=== PATIENT | female | born 1960 | race Caucasian/White ===

== ENCOUNTER 2019-02-12 10:56 | Emergency (ER) | payer OTHER ==
--- NOTE | 2019-02-12 11:33 | ERPHSYRPT ---
- History of Present Illness Source: patient, other () Exam Limitations: no limitations Patient Subjective Stated Complaint: pt slipped on stairs and fell hitting back on stairs, pt co pain to mid back and rib areas Triage Nursing Assessment: pt alert, resp labored from pain,. skin w/d/p.abd soft, no bruising ar abrasion noted . pt was able to get self out of wc to bed Physician History: tthe patient is a 58-year-old female who presents with a chief complaint of mid back pain after a mechanical fall that took place an estimated 45 minutes prior to arrival to the emergency department. She reportedly was walking down some basement stairs when she slipped and fell down the last 2 stairs impacting her mid back on the edge of the stair. She denies loss of consciousness but states that the wind was knocked out of her. She is able to get up on her own and ambulate without difficulty with the exception of pain or back. The pain is described as a sharp left-sided pain located primarily to the thoracic or lumbar region of her spine that is nonradiating constant in mild to moderate severity. The pain increases with movement of her torso and decreases with rest. She currently has no significant medical problems and denies taking anticoagulants. There is no report of drug or alcohol use. The patient is able to get out of the car around and walk into the emergency department but was assisted to her room via wheelchair. She denies any focal weakness to her lower extremities and upper extremities. There was never put a numbness to her lower extremities. she was offered pain medication after I completed my history of present illness and exam however she declined Reason for Fall: slipped Injuries/Pain Location: back Loss of Consciousness: no loss of consciousness Quality: sharpness, throbbing Severity of Pain-Max: moderate Severity of Pain-Current: mild Modifying Factors: Improves With: nothing Associated Symptoms (Fall): denies symptoms, No headache, No neck pain, No vomiting Allergies/Adverse Reactions: pseudoephedrine [From Sudafed] Allergy (Verified 02/12/19 11:11) Hx Influenza Vaccination/Date Given: No Hx Pneumococcal Vaccination/Date Given: No Immunizations Up to Date: Yes - Review of Systems Constitutional: No No Symptoms Ears, Nose, & Throat: No Symptoms Respiratory: No Symptoms Cardiac: No Symptoms Abdominal/Gastrointestinal: No Symptoms Genitourinary Symptoms: No Symptoms Musculoskeletal: Fall, Injury, Other (Back pain) Neurological: No Symptoms Psychological: No Symptoms All Other Systems: Reviewed and Negative - Past Medical History Pertinent Past Medical History: No - Past Surgical History Past Surgical History: No - Social History Smoking Status: Never smoker Drug Use: none Patient Lives Alone: No - Female History Hx Last Menstrual Period: psot - Nursing Vital Signs Nursing Vital Signs: Initial Vital Signs Temperature 97.5 F 02/12/19 11:06 Pulse Rate 72 02/12/19 11:06 Respiratory Rate 20 02/12/19 11:06 Blood Pressure 150/97 02/12/19 11:06 O2 Sat by Pulse Oximetry 100 02/12/19 11:06 Pain Scale Pain Intensity 4 - [place] Coma Score Best Eye Response (Dat): (4) open spontaneously Best Verbal Response (Dat): (5) oriented Best Motor Response ([place]): (6) obeys commands Dat Total: 15 - Physical Exam General Appearance: mild distress Head Injury: no evidence of injury Eye Exam: PERRL/EOMI, eyes nml inspection, No scleral icterus, No pale conjunctivae ENT Exam: airway nml, No dental injury, No oral injury Neck Exam: supple, trachea midline, full range of motion, normal alignment, normal inspection, focal neuro deficit, No limited range of motion, No muscle spasm, No paraspinous muscle tender, No pain on movement of neck, No stiff neck , No tenderness, No tender lateral, No mid-line tenderness, No JVD Respiratory/Chest Exam: normal breath sounds, No chest tenderness, No respiratory distress, No decreased breath sounds, No paradoxical movements Cardiovascular Exam: normal heart sounds, regular rate/rhythm, No murmur, No edema, No JVD Gastrointestinal Exam: soft, normal bowel sounds, No tenderness Back Exam: normal inspection, point tenderness, other (Point tenderness noted to the T11-12, L1-2, no crepitus, no step-off, or deformity, no visible injury present) Extremity Exam: normal inspection Peripheral Pulses: dorsalis-pedis (R): 2+, dorsalis-pedis (L): 2+ Neurologic Exam: alert, oriented x 3, cooperative Skin Exam: normal color SpO2 Interpretation: normal SpO2: 100 O2 Delivery: Room Air - Course Nursing assessment & vital signs reviewed: Yes - Radiology Exams Other X-ray Interpretation: Interpreted by me, Reviewed by me (I reviewed the patient' s XR and it appeared to be abnormal at T11-T12 and I requested radiology to formally read. Radiology read ? T12 Fracture recommend follow-up CT. ) - CT Exams Thoracic Spine CT Interpretation: Negative, Tele-radiologist Report, Other (CT reviewed by me as well and I did not see any obvious fracture ) Ordered Tests: Active Orders 24 hr Category Date Time Status THORACIC SPINE W/O CONTRAST [CT] Stat Exams 02/12/19 12:10 Completed THORACOLUMBAR SPINE Stat Exams 02/12/19 12:07 Completed Medication Summary Discontinued Medications Generic Name Dose Route Start Last Admin Trade Name Freq PRN Reason Stop Dose Admin Hydrocodone Bitart/Acetaminophen 2 tab 02/12/19 11:35 02/12/19 11:37 [place] 5/325 Mg PO 02/12/19 11:36 2 tab STAT ONE Administration Hydrocodone Bitart/Acetaminophen Confirm 02/12/19 11:36 [place] 5/325 Mg Administered 02/12/19 11:37 Dose 2 tab .ROUTE .[employer]Beam[employer] Interactive-MED ONE - Progress Progress: improved Progress Note: 02/12/19 11:34 The patients just came to the nursing station and reports the patient is now requesting pain medication Counseled pt/family regarding: diagnosis, need for follow-up - Departure Departure Disposition: Home, Extended Care Facility Clinical Impression: Contusion, back, Fall (on) (from) other stairs and steps, initial encounter, Elevated blood pressure reading Condition: Stable Critical Care Time: No Referrals: REBECA WILLINGHAM [Primary Care Provider] - Instructions: Low Back Pain in Adults, Contusion (DC), Preventing Falls Forms: Work/School Release Form Plan of Treatment: aand nontoxic in appearance. The patient presents with a mechanical fall in his lower thoracic back pain suspicious for a possible fracture. Ultimately the patient's plain films showed evidence of a possible T12 fracture and followup CT of her thoracic spine was negative for such. I believe the patient likely is suffering from a rectal lumbar strain in addition to a contusion from her mechanical fall. She'll be discharged with instructions to take naproxen scheduled for the next 5 days and given a short prescription for [place] to take for any breakthrough pain. Prescriptions: Hydrocodone/APAP 5/325 [[place] 5/325 mg] 1 - 2 each PO Q6H PRN PRN #10 tablet MDD 6 PRN Reason: Pain Naproxen 500 mg [Naprosyn 500 MG] 500 mg PO BID #10 tablet
[2019-02-12] MEDS ORDERED: NORCO 5/325 MG PO ONE (11:35)
[2019-02-12] MEDS ORDERED: NORCO 5/325 MG ONE (11:36)
[2019-02-12 13:12] VITALS: O2SAT 100
[2019-02-12 13:19] VITALS: BP 145/81; PULSE 72
--- NOTE | 2019-02-12 15:27 | XRAY ---
Indication: Back pain following fall. Multiple contiguous axial images obtained through the thoracic spine. Sagittal and coronal reformatted images obtained. Comparison: None Axial images negative for acute fracture, suspicious bony lesions, or spinal canal stenosis. There is mild multilevel bridging/nonbridging endplate osteophytes. Sagittal and coronal reformatted images demonstrate normal alignment with vertebral body heights/disc spaces maintained. No acute compression fracture or subluxation. Visualized soft tissues demonstrates mild bilateral lung dependent atelectasis and mediastinal/hilar calcified lymph nodes. Impression: 1. Negative acute fracture, subluxation, or spinal canal stenosis. 2. Multilevel degenerative spondylosis and evidence for old granulomatous disease. Comment: Preliminary interpretation was made by [facility]. No discrepancy. CTDI 13.39
--- NOTE | 2019-02-12 15:27 | XRAY ---
Indication: Pain following fall. Comparison: None AP/lateral spine centered at the thoracolumbar junction demonstrates mild osteopenia and mild multilevel degenerative endplate spurring. No acute compression fracture, subluxation, or suspicious bony lesions. Visualized soft tissues unremarkable. Impression: Osteopenia and degenerative changes. Negative acute fracture/subluxation.
== END 2019-02-12 13:33 | disposition home or self-care (01) ==
LOC: ED 10:56
DX: S20.229A Contusion of unspecified back wall of thorax, initial encounter (principal); W01.198A Fall on same level from slipping, tripping and stumbling with subsequent striking against other object, initial encounter; Y93.9 Activity, unspecified; Y92.9 Unspecified place or not applicable; M54.6 Pain in thoracic spine; M54.5 Low back pain
CPT/HCPCS: 72080; 72128; 99284; A9270-GY

== ENCOUNTER → 2019-02-18 | Emergency (ER) | payer OTHER ==
[~2019-02-18] MED LIST: MORPHINE SULFATE 4 MG INJ IM ONE; MORPHINE SULFATE 4 MG INJ ONE; Norflex 60 MG/2 ML IM ONE; Norflex 60 MG/2 ML ONE
--- NOTE | 2019-02-18 11:15 | ERPHSYRPT ---
- History of Present Illness Time Seen by Provider: 02/18/19 09:25 Source: patient Exam Limitations: no limitations Patient Subjective Stated Complaint: pt to ER with complaints of fall last wednesday, seen here in ER, sent home, and seen chiropractor that week. pt moved wrong in bed , felt a "pop" in mid/right side of back and has been in pain ever since. Triage Nursing Assessment: pt to ER with complaints of pain in thoracic back pain/R side rib pain. also having abdominal pain/nausea. pt states she fell last week and moved in bed , felt a pop and then has been having pain ever since. Physician History: 58 years old female presented in the ER with chief complaint of mid back pain after she missed a couple of steps and fell, hitting edge of stairs almost a week ago with negative CT thoracic spine for any fracture or subluxation. She is evaluated in the ER before, pain was better with [place], was ambulating better until 2 days ago when pain is getting worse. Morbid activity/movement/ twisting and better with resting. Nonradiating. Denies any loss of bowel or bladder control. No nausea or vomiting. No new fall or trauma. He is in the same area as before. Timing/Duration: week(s) (1) Method of Injury: fall Quality: sharp, throbbing Back Pain Location: T-spine, lumbar spine (with a) Modifying Factors: Improves With: movement, pain medication, rest Associated Symptoms: muscle spasms, No urinary incontinence, No loss of bowel control, No constipation, No vomiting, No dizziness, No numbness in legs/feet, No sensory/motor loss, No tingling in legs/feet Previous symptoms: no prior history Allergies/Adverse Reactions: pseudoephedrine [From Sudafed] Allergy (Verified 02/18/19 09:48) Hx Tetanus, Diphtheria Vaccination/Date Given: No Hx Influenza Vaccination/Date Given: No Hx Pneumococcal Vaccination/Date Given: No Immunizations Up to Date: No - Review of Systems Constitutional: No Symptoms Eyes: No Symptoms Ears, Nose, & Throat: No Symptoms Respiratory: No Symptoms Cardiac: No Symptoms Abdominal/Gastrointestinal: No Symptoms Genitourinary Symptoms: No Symptoms Musculoskeletal: Back Pain Skin: No Symptoms Neurological: No Symptoms Psychological: No Symptoms Endocrine: No Symptoms Hematologic/Lymphatic: No Symptoms Immunological/Allergic: No Symptoms - Past Medical History Pertinent Past Medical History: No - Past Surgical History Past Surgical History: No - Social History Smoking Status: Never smoker Exposure to second hand smoke: Yes Drug Use: none Patient Lives Alone: No - Female History Hx Now: No - Nursing Vital Signs Nursing Vital Signs: Initial Vital Signs Temperature 97.3 F 02/18/19 09:35 Pulse Rate 66 02/18/19 09:35 Respiratory Rate 18 02/18/19 09:35 Blood Pressure 165/78 02/18/19 09:35 O2 Sat by Pulse Oximetry 100 02/18/19 09:35 Pain Scale Pain Intensity 8 - Physical Exam General Appearance: no apparent distress Eye Exam: PERRL/EOMI Ears, Nose, Throat Exam: normal ENT inspection, pharynx normal Neck Exam: normal inspection, non-tender, supple, full range of motion Respiratory Exam: normal breath sounds, chest tenderness, lungs clear Cardiovascular Exam: regular rate/rhythm, normal heart sounds Gastrointestinal Exam: soft, normal bowel sounds, No tenderness, No distention, No mass Back Exam: normal inspection, vertebral tenderness (lower thoracic/upper lumbar paraspinal area tenderness with some vertebral tenderness. No pain with leg elevations. Distal neurovascularly intact.), No normal range of motion, No CVA tenderness Extremity Exam: normal inspection, normal range of motion, pelvis stable Neurologic Exam: alert, oriented x 3, cooperative Skin Exam: normal color, warm (troponin) SpO2 Interpretation: normal SpO2: 100 O2 Delivery: Room Air - Course Nursing assessment & vital signs reviewed: Yes Ordered Tests: Medication Summary Discontinued Medications Generic Name Dose Route Start Last Admin Trade Name [place] PRN Reason Stop Dose Admin Morphine Sulfate 4 mg 02/18/19 09:59 02/18/19 10:12 Morphine Sulfate 4 Mg Inj IM 02/18/19 10:00 4 mg STAT ONE Administration Morphine Sulfate Confirm 02/18/19 10:05 Morphine Sulfate 4 Mg Inj Administered 02/18/19 10:06 Dose 4 mg .ROUTE .STK-MED ONE Orphenadrine Citrate 60 mg 02/18/19 09:59 02/18/19 10:10 Norflex 60 Mg/2 Ml IM 02/18/19 10:00 60 mg STAT ONE Administration Orphenadrine Citrate Confirm 02/18/19 10:05 Norflex 60 Mg/2 Ml Administered 02/18/19 10:06 Dose 60 mg .ROUTE .STK-MED ONE - Progress Progress: improved, pain not gone completely, re-examined Progress Note: 58 years old is evaluated for mid back pain after fall almost a week ago. She does not have a meal follow and pain is similar to previous. She recently ran out of her pain medications. She has negative neuro exam lower extremities. No signs of cauda equina. I have reviewed her CT done last week. I do not think she needs another CAT scan. She is given morphine and Norflex, and reevaluation feeling much improved. She is able to ambulate in the ER without assistance. I believe she has crackle lumbar strain. I would start her on ibuprofen and Robaxin and will also give her a few more close to take as needed only. Discussed signs and symptoms of worsening needed return to ER which he seems understanding. Otherwise followup at primary care /orthopedic surgeon for reevaluation. 02/18/19 11:22 Counseled pt/family regarding: diagnosis, need for follow-up - Departure Departure Disposition: Home Clinical Impression: Strain of mid-back Qualifiers: Encounter type: subsequent encounter Qualified Code(s): S29.012D - Strain of muscle and tendon of back wall of thorax, subsequent encounter Condition: Stable Critical Care Time: No Referrals: REBECA WILLINGHAM [Primary Care Provider] - Follow Up with PCP (1-2 days ) ANGELIQUE KEARNEY NP [NON-STAFF PHY W/O PRIVILEGES] - [facility] M-[id number] (2-3 days for re valuation) Prescriptions: Ibuprofen 600 mg PO Q6HPRN PRN 10 Days #30 tablet PRN Reason: Pain Hydrocodone/Acetaminophen [[place] 7.5-325 Tablet] 1 each PO Q4-6HPRN PRN 3 Days # 10 tablet MDD 4 tab PRN Reason: Pain Methocarbamol [Robaxin-750] 750 mg PO TID #30 tablet
[2019-02-18 14:03] VITALS: BP 128/74; PULSE 65; O2SAT 98
== END ==
LOC: ED 08:58
DX: S29.012D Strain of muscle and tendon of back wall of thorax, subsequent encounter (principal)
CPT/HCPCS: 96372; 99284; J2270; J2360

== ENCOUNTER 2021-07-07 10:25 | Emergency (ER) | payer OTHER ==
--- NOTE | 2021-07-07 10:28 | ERPHSYRPT ---
- History of Present Illness Time Seen by Provider: 07/07/21 10:28 Historian: patient, family Exam Limitations: no limitations Physician History: This is a 60-year-old white female patient of Dr. Hauser who presents with chest pain and epigastric discomfort that she described as sharp that radiates through to her back. Patient states that she has been having some nausea and mild discomfort in this region for couple days since she has been on a Z-Norman for treatment of a tooth ache. Patient has known documented/history of coronary artery disease. Patient does have a history of chronic low back pain. She has no shortness of breath. She had no vomiting or diarrhea or flulike symptoms. Timing/Duration: today Activities at Onset: none Quality: sharpness, stabbing Location: substernal, central, epigastric Chest Pain Radiation: back Severity of Pain-Max: moderate Severity of Pain-Current: moderate Associated Symptoms: nausea, No vomiting, No shortness of breath, No cough Prior Chest Pain/Cardiac Workup: no prior chest pain, no prior cardiac workup Nitro Today/Relief: no nitro taken today Aspirin Treatment Today: no aspirin today Allergies/Adverse Reactions: pseudoephedrine [From Sudafed] Allergy (Verified 07/07/21 10:28) Home Medications: Azithromycin [Azithromycin 250 mg Pack] 1 ea DAILY 07/07/21 [History] Ezetimibe 10 mg [Zetia 10 MG] 1 ea DAILY 07/07/21 [History] Hx Tetanus, Diphtheria Vaccination/Date Given: No Hx Influenza Vaccination/Date Given: No Hx Pneumococcal Vaccination/Date Given: No Travel Risk - International Travel Have you traveled outside of the country in past 3 weeks: No - Coronavirus Screening Are you exhibiting any of the following symptoms?: No Close contact with a COVID-19 positive Pt in past 14-21 Days: No - Review of Systems Constitutional: No Symptoms Eyes: No Symptoms Ears, Nose, & Throat: No Symptoms Respiratory: No Symptoms Cardiac: Chest Pain Abdominal/Gastrointestinal: Abdominal Pain (epigastric), Nausea, No Vomiting, No Diarrhea Genitourinary Symptoms: No Symptoms Musculoskeletal: No Symptoms Skin: No Symptoms Neurological: No Symptoms Psychological: No Symptoms Endocrine: No Symptoms Hematologic/Lymphatic: No Symptoms Immunological/Allergic: No Symptoms All Other Systems: Reviewed and Negative - Past Medical History Pertinent Past Medical History: No - Past Surgical History Past Surgical History: No - Social History Smoking Status: Never smoker Exposure to second hand smoke: Yes Drug Use: none Patient Lives Alone: No - Nursing Vital Signs Nursing Vital Signs: Initial Vital Signs O2 Sat by Pulse Oximetry 96 07/07/21 10:29 Pain Scale Pain Intensity 0 - Physical Exam General Appearance: mild distress, alert, anxiety Eye Exam: PERRL/EOMI, eyes nml inspection Ears, Nose, Throat Exam: normal ENT inspection, moist mucous membranes Neck Exam: normal inspection, non-tender, supple, full range of motion Respiratory Exam: normal breath sounds, chest tenderness, lungs clear, airway intact, No respiratory distress Cardiovascular Exam: regular rate/rhythm, normal heart sounds, normal peripheral pulses Gastrointestinal/Abdomen Exam: soft, normal bowel sounds, tenderness (epigastric) Pelvic Exam: not done Rectal Exam: not done Back Exam: normal inspection, normal range of motion, No CVA tenderness, No vertebral tenderness Extremity Exam: normal inspection, normal range of motion, pelvis stable Neurologic Exam: alert, oriented x 3, cooperative, normal mood/affect, nml cerebellar function, nml station & gait Skin Exam: normal color, warm, dry Lymphatic Exam: No adenopathy SpO2 Interpretation: normal O2 Delivery: Room Air - Course Nursing assessment & vital signs reviewed: Yes EKG Interpreted by Me: RATE (65), Sinus Rhythm, NORMAL INTERVALS, Left Bundle Branch Block, NORMAL ST-T, Other (no acute ischemia) Ordered Tests: Active Orders 24 hr Category Date Time Status EKG-ER Only STAT Care 07/07/21 10:29 Active IV Insertion STAT Care 07/07/21 10:29 Active Oxygen-ED Only Nasal Cannula 2 lpm Care 07/07/21 11:38 Active Pulse Oximetry (ED) STAT Care 07/07/21 10:29 Active CHEST 1 VIEW (PORTABLE) Stat Exams 07/07/21 10:32 Completed CHEST WITH CONTRAST [CT] Stat Exams 07/07/21 12:28 Completed CBC W DIFF Stat Lab 07/07/21 10:40 Completed CMP Stat Lab 07/07/21 10:40 Completed D-DIMER QUANTITATIVE Stat Lab 07/07/21 10:40 Completed NT PRO BNP Stat Lab 07/07/21 10:40 Completed TROPONIN Q3H Lab 07/07/21 10:40 Completed TROPONIN Q3H Lab 07/07/21 13:48 Received TROPONIN Q3H Lab 07/07/21 16:45 Ordered TROPONIN Q3H Lab 07/07/21 19:45 Ordered TROPONIN Q3H Lab 07/07/21 22:45 Ordered Medication Summary Discontinued Medications Generic Name Dose Route Start Last Admin Trade Name Elbert PRN Reason Stop Dose Admin Al Hydrox/Mg Hydrox/Simethicone Confirm 07/07/21 11:36 Mag Hydrox/Al Hydrox/Simeth 30 Ml Udcup Administered 07/07/21 11:37 Dose 30 ml .ROUTE .STK-MED ONE Aspirin 324 mg 07/07/21 10:29 07/07/21 10:43 Aspirin 81 Mg Tab.Chew PO 07/07/21 10:30 324 mg STAT ONE Administration Aspirin Confirm 07/07/21 10:42 Aspirin 81 Mg Tab.Chew Administered 07/07/21 10:43 Dose 324 mg .ROUTE .STK-MED ONE Ceftriaxone Sodium/Dextrose 1 g in 50 mls @ 100 mls/hr 07/07/21 11:31 07/07/21 12:33 Rocephin 1 Gm-D5w 50 Ml Bag IV 07/07/21 12:00 Infused STAT STA Infusion Ceftriaxone Sodium/Dextrose Confirm 07/07/21 11:36 Rocephin 1 Gm-D5w 50 Ml Bag Administered 07/07/21 11:37 Dose 1 g in 50 mls @ ud IV .STK-MED ONE Lidocaine HCl Confirm 07/07/21 11:36 Lidocaine Hcl Viscous 1 Ml Administered 07/07/21 11:37 Dose 15 ml .ROUTE .STK-MED ONE Magnesium Hydroxide 45 ml 07/07/21 11:28 07/07/21 11:42 Mag Hydrx/Alum Hyd/Simeth/Lido 45 Ml Bottle PO 07/07/21 11:29 45 ml STAT ONE Administration Morphine Sulfate 2 mg 07/07/21 10:29 07/07/21 10:49 Morphine Sulfate 2 Mg/Ml Inj IV 07/07/21 10:30 2 mg STAT ONE Administration Morphine Sulfate Confirm 07/07/21 10:42 Morphine Sulfate 2 Mg/Ml Inj Administered 07/07/21 10:43 Dose 2 mg .ROUTE .STK-MED ONE Nitroglycerin 0.4 mg 07/07/21 10:29 07/07/21 11:26 Nitroglycerin 0.4 Mg (Ed) 0.4 Mg Tab.Subl SL 07/07/21 10:30 Not Given STAT ONE Ondansetron HCl 4 mg 07/07/21 10:29 07/07/21 10:43 Ondansetron Hcl 4 Mg/2 Ml Vial IV 07/07/21 10:30 4 mg STAT ONE Administration Ondansetron HCl Confirm 07/07/21 10:41 Ondansetron Hcl 4 Mg/2 Ml Vial Administered 07/07/21 10:42 Dose 4 mg .ROUTE .STK-MED ONE Lab/Rad Data: Laboratory Result Diagrams 07/07/21 10:40 07/07/21 10:40 Laboratory Results 07/07/21 07/07/21 07/07/21 Range/Units 10:40 10:40 10:40 WBC (4.0-10.5) K/mm3 RBC (4.1-5.4) M/mm3 Hgb (12.0-16.0) gm/dl Hct (35-47) % MCV (78-100) fl MCH (26-32) pg MCHC (32-36) g/dl RDW (11.5-14.0) % Plt Count (150-450) K/mm3 MPV (7.5-11.0) fl Gran % (36.0-66.0) % Eos # (Auto) (0-0.5) Absolute Lymphs (auto) (1.0-4.6) Absolute Monos (auto) (0.0-1.3) Lymphocytes % (24.0-44.0) % Monocytes % (0.0-12.0) % Eosinophils % (0.00-5.0) % Basophils % (0.0-0.4) % Absolute Granulocytes (1.4-6.9) Basophils # (0-0.4) D-Dimer 898 H* (215-500) ng/mL Sodium 139 (137-145) mmol/L Potassium 4.2 (3.5-5.1) mmol/L Chloride 102 (98-107) mmol/L Carbon Dioxide 23 (22-30) mmol/L Anion Gap 17.7 H (5-15) MEQ/L BUN 18 H (7-17) mg/dL Creatinine 0.72 (0.52-1.04) mg/dL Estimated GFR > 60.0 ML/MIN Glucose 117 H (74-106) mg/dL Calcium 9.7 (8.4-10.2) mg/dL Total Bilirubin 1.10 (0.2-1.3) mg/dL AST 29 (14-36) U/L ALT 19 (0-35) U/L Alkaline Phosphatase 119 (38-126) U/L Troponin I < 0.012 (0.000-0.034) ng/mL NT-Pro-B Natriuret Pep 32.7 (0-900) pg/mL Serum Total Protein 7.6 (6.3-8.2) g/dL Albumin 4.5 (3.5-5.0) g/dL 07/07/21 Range/Units 10:40 WBC 12.2 H (4.0-10.5) K/mm3 RBC 4.90 (4.1-5.4) M/mm3 Hgb 14.2 (12.0-16.0) gm/dl Hct 42.6 (35-47) % MCV 86.9 (78-100) fl MCH 29.0 (26-32) pg MCHC 33.3 (32-36) g/dl RDW 13.7 (11.5-14.0) % Plt Count 353 (150-450) K/mm3 MPV 11.9 H (7.5-11.0) fl Gran % 72.8 H (36.0-66.0) % Eos # (Auto) 0.18 (0-0.5) Absolute Lymphs (auto) 2.42 (1.0-4.6) Absolute Monos (auto) 0.69 (0.0-1.3) Lymphocytes % 19.8 L (24.0-44.0) % Monocytes % 5.7 (0.0-12.0) % Eosinophils % 1.5 (0.00-5.0) % Basophils % 0.2 (0.0-0.4) % Absolute Granulocytes 8.89 H (1.4-6.9) Basophils # 0.03 (0-0.4) D-Dimer (215-500) ng/mL Sodium (137-145) mmol/L Potassium (3.5-5.1) mmol/L Chloride (98-107) mmol/L Carbon Dioxide (22-30) mmol/L Anion Gap (5-15) MEQ/L BUN (7-17) mg/dL Creatinine (0.52-1.04) mg/dL Estimated GFR ML/MIN Glucose (74-106) mg/dL Calcium (8.4-10.2) mg/dL Total Bilirubin (0.2-1.3) mg/dL AST (14-36) U/L ALT (0-35) U/L Alkaline Phosphatase (38-126) U/L Troponin I (0.000-0.034) ng/mL NT-Pro-B Natriuret Pep (0-900) pg/mL Serum Total Protein (6.3-8.2) g/dL Albumin (3.5-5.0) g/dL - Progress Progress: improved, re-examined Air Movement: good Progress Note: 07/07/21 11:30 Chest x-ray shows no acute cardiopulmonary process. 07/07/21 13:13 Patient states that after the GI cocktail and Zofran, her symptoms resolved nearly completely. She is feeling much better. 07/07/21 13:51 CTA of chest shows no acute cardiopulmonary abnormalities. It is negative for pulmonary embolus Blood Culture(s) Obtained: No Counseled pt/family regarding: lab results, diagnosis, need for follow-up, rad results - Departure Departure Disposition: Home Clinical Impression: Non-cardiac chest pain, Gastritis, Medication adverse effect Condition: Stable Critical Care Time: No Referrals: REBECA HAUSER [Primary Care Provider] - Follow up/PCP as directed Additional Instructions: Stop taking your azithromycin antibiotic. Call your prescribing doctor to let them know about your symptoms. Avoid fatty greasy spicy foods. Avoid caffeine and nicotine. Take your medication as prescribed. Prescriptions: Ondansetron ODT 4 MG [Zofran Odt 4 mg] 4 mg PO Q6H PRN PRN #10 tablet PRN Reason: Vomiting Famotidine 20 mg [Pepcid 20 MG] 20 mg PO DAILY #10 tablet
[2021-07-07] MEDS ORDERED: BABY ASPIRIN 81 MG CHEW PO ONE (10:29)
[2021-07-07] MEDS ORDERED: Nitrostat 0.4 MG (ED) SL ONE (10:29)
[2021-07-07] MEDS ORDERED: MORPHINE SULFATE 2 MG INJ IV ONE (10:29)
[2021-07-07] MEDS ORDERED: Zofran 4 MG/2 ML VIAL IV ONE (10:29)
[2021-07-07] MEDS ORDERED: Zofran 4 MG/2 ML VIAL ONE (10:41)
[2021-07-07] MEDS ORDERED: BABY ASPIRIN 81 MG CHEW ONE (10:42)
[2021-07-07] MEDS ORDERED: MORPHINE SULFATE 2 MG INJ ONE (10:42)
--- NOTE | 2021-07-07 11:02 | XRAY ---
Indication: Chest pain. Comparison: None Portable chest demonstrates minimal left base fibrosis/scarring. Remaining heart and lungs unremarkable. Bony thorax intact with mild osteopenia and degenerative changes.
[2021-07-07 11:07] LABS: ALBUMIN 4.5 g/dL (3.5-5.0); ALKALINE PHOSPHATASE 119 U/L (38-126); ANION GAP 17.7 MEQ/L (5-15); BLOOD UREA NITROGEN 18 mg/dL (7-17); CHLORIDE 102 mmol/L (98-107); Calcium 9.7 mg/dL (8.4-10.2); Carbon Dioxide 23 mmol/L (22-30); Creatinine 1 0.72 mg/dL (0.52-1.04); EST GLOMERULAR FILTRATION RATE > 60.0 ML/MIN; Glucose 117 mg/dL (74-106); NT PRO BNP 32.7 pg/mL (0-900); Potassium 4.2 mmol/L (3.5-5.1); SGOT/AST 29 U/L (14-36); SGPT/ALT 19 U/L (0-35); SODIUM 139 mmol/L (137-145); Total Protein 7.6 g/dL (6.3-8.2)
[2021-07-07 11:10] LABS: Absolute Neutrophil Ct (ANC) 8.89 (1.4-6.9); Basophil (Absolute #) 0.03 (0-0.4); Eosinophil % 1.5 % (0.00-5.0); Eosinophil (Absolute #) 0.18 (0-0.5); Hematocrit 42.6 % (35-47); Hemoglobin 14.2 gm/dl (12.0-16.0); Lymphocyte (Absolute #) 2.42 (1.0-4.6); Lymphocytes % 19.8 % (24.0-44.0); Mean Cell Volume 86.9 fl (78-100); Mean Corpuscular Hgb Concent. 33.3 g/dl (32-36); Mean Platelet Volume 11.9 fl (7.5-11.0); Monocyte (Absolute #) 0.69 (0.0-1.3); Monocytes % 5.7 % (0.0-12.0); Neutrophil % 72.8 % (36.0-66.0); Platelet Count 353 K/mm3 (150-450); Red Cell Distribution Width 13.7 % (11.5-14.0); White Blood Count 12.2 K/mm3 (4.0-10.5)
[2021-07-07] MEDS ORDERED: GI COCKTAIL 45 ML (Maalox/Lidocaine) PO ONE (11:28)
[2021-07-07] MEDS ORDERED: ROCEPHIN 1 Gm-D5w 50 ml Bag** 1 G/50 ML IVPB IV STA (11:31)
[2021-07-07] MEDS ORDERED: XYLOCAINE HCl Viscous ONE (11:36)
[2021-07-07] MEDS ORDERED: ROCEPHIN 1 Gm-D5w 50 ml Bag** 1 G/50 ML IVPB IV ONE (11:36)
[2021-07-07] MEDS ORDERED: MAALOX ES 30 ML UNIT DOSE ONE (11:36)
--- NOTE | 2021-07-07 13:47 | XRAY ---
Indication: Chest and back pain. Nausea and vomiting. Multiple contiguous axial images obtained through the chest using 100 cc Isovue 370 contrast and PE protocol. Comparison: None Good opacification of the pulmonary arteries to include the lobar and segmental branches. No pulmonary embolus. Heart is not enlarged. Aorta is normal in course and caliber. A few tiny mediastinal and bilateral hilar calcified nodes. No pathologic mediastinal/hilar lymphadenopathy. Small hiatal hernia. Lungs demonstrates moderate bilateral dependent atelectasis and bibasilar subsegmental atelectasis/scarring. No suspicious pulmonary mass, infiltrate, effusion, or pneumothorax. Bony thorax intact with mild degenerative changes throughout the spine. Limited upper abdomen unremarkable. Impression: 1. Negative pulmonary embolus. No acute cardiopulmonary abnormalities. 2. Incidental small hiatal hernia and old granulomatous disease.
[2021-07-07 14:04] VITALS: BP 118/85; PULSE 74; O2SAT 96
== END 2021-07-07 14:19 | disposition home or self-care (01) ==
LOC: ED 10:25
DX: R07.89 Other chest pain (principal); T36.3X5A Adverse effect of macrolides, initial encounter; K29.70 Gastritis, unspecified, without bleeding; R10.13 Epigastric pain; I25.10 Atherosclerotic heart disease of native coronary artery without angina pectoris; G89.29 Other chronic pain; M54.50 Low back pain, unspecified; Z79.899 Other long term (current) drug therapy
CPT/HCPCS: 36000; 36415; 71045; 71260; 80053; 83880; 84484; 85025; 85379; 93005; 94760; 96365; 96374; 96375; 99285; J0696; J2270; J2405; A9270-GY

== ENCOUNTER 2021-07-08 20:22 | Emergency (ER) | payer OTHER ==
[2021-07-08] MEDS ORDERED: Sodium Chloride 0.9% 1000 ML 1,000 ML IV STA (21:05)
[2021-07-08] MEDS ORDERED: Zofran 4 MG/2 ML VIAL IV ONE (21:05)
[2021-07-08] MEDS ORDERED: GI COCKTAIL 45 ML (Maalox/Lidocaine) PO ONE (21:05)
[2021-07-08] MEDS ORDERED: PROTONIX 40 MG IV IV ONE ×2 (21:05→21:18)
[2021-07-08] MEDS ORDERED: MORPHINE SULFATE 4 MG INJ IV ONE (21:05)
[2021-07-08] MEDS ORDERED: Zofran 4 MG/2 ML VIAL ONE (21:08)
[2021-07-08] MEDS ORDERED: MORPHINE SULFATE 4 MG INJ ONE (21:08)
--- NOTE | 2021-07-08 21:14 | ERPHSYRPT ---
- History of Present Illness Time Seen by Provider: 07/08/21 20:44 Historian: patient Exam Limitations: no limitations Patient Subjective Stated Complaint: Patient and state that patient started having abdominal pain approx 45 minutes prior to arrival to ED. Denies SOB or chest pain. C/O nausea without vomiting. States she was here yesterday for a similar attack. Triage Nursing Assessment: Patient brought back to ED in a wheelchair acco mpanied by her . She is alert and oriented and answering questions appropriately. Patient is displaying s/s of pain, she is anxious and breathing rapidly. Patient instructed to focus on her breathing and take slow, deep breaths. Patient pointing to mid upper abdomen when asked where the pain is located. The pain radiates all the way through to her back. Lungs clear. No cough. Physician History: 60 years old female presented in the ER with chief complaint of epigastric pain off and on since yesterday moderate to severe intensity sharp in nature, aggravated with palpation, movement, associated with nausea but no vomiting. Patient was seen in the ER with similar symptoms yesterday but was more in the substernal/chest area and work-up was negative. Patient denies any fever chills, diarrhea or vomiting. Timing/Duration: yesterday, intermittent, worse Activities at Onset: rest Quality: sharpness Abdominal Pain Onset Location: epigastric Pain Radiation: back Severity of Pain-Max: severe Severity of Pain-Current: severe Modifying Factors: Worsens With: movement, palpation Associated Symptoms: nausea, vomiting Previous symptoms: no prior history Allergies/Adverse Reactions: pseudoephedrine [From Sudafed] Allergy (Verified 07/08/21 21:06) Home Medications: Ezetimibe 10 mg [Zetia 10 MG] 1 ea DAILY 07/07/21 [History] Hx Tetanus, Diphtheria Vaccination/Date Given: No Hx Influenza Vaccination/Date Given: No Hx Pneumococcal Vaccination/Date Given: No Immunizations Up to Date: No Travel Risk - International Travel Have you traveled outside of the country in past 3 weeks: No - Coronavirus Screening Are you exhibiting any of the following symptoms?: No Close contact with a COVID-19 positive Pt in past 14-21 Days: No - Vaccine Status Have you recieved a Covid-19 vaccination: Yes [address] [employer]: [employer] - Vaccination Dates Date of 2cond Vaccination (if applicable): ? - Review of Systems Constitutional: No Symptoms Eyes: No Symptoms Ears, Nose, & Throat: No Symptoms Respiratory: No Symptoms Cardiac: No Symptoms Abdominal/Gastrointestinal: Abdominal Pain, Nausea Genitourinary Symptoms: No Symptoms Musculoskeletal: No Symptoms Skin: No Symptoms Neurological: No Symptoms Psychological: No Symptoms Endocrine: No Symptoms Hematologic/Lymphatic: No Symptoms Immunological/Allergic: No Symptoms - Past Medical History Pertinent Past Medical History: No Neurological History: No Pertinent History ENT History: No Pertinent History Cardiac History: Hypertension Respiratory History: No Pertinent History Endocrine Medical History: Hypothyroidism Musculoskeletal History: No Pertinent History GI Medical History: No Pertinent History History: No Pertinent History Psycho-Social History: No Pertinent History Female Reproductive Disorders: No Pertinent History - Past Surgical History Past Surgical History: No - Social History Smoking Status: Never smoker Exposure to second hand smoke: Yes Drug Use: none Patient Lives Alone: No - Nursing Vital Signs Nursing Vital Signs: Initial Vital Signs Temperature 97.2 F 07/08/21 20:38 Pulse Rate 74 07/08/21 20:38 Respiratory Rate 23 07/08/21 20:38 Blood Pressure 129/82 07/08/21 20:38 O2 Sat by Pulse Oximetry 100 07/08/21 20:38 Pain Scale Pain Intensity 5 - Physical Exam General Appearance: no apparent distress, alert Eye Exam: PERRL/EOMI, eyes nml inspection Ears, Nose, Throat Exam: normal ENT inspection, pharynx normal Neck Exam: normal inspection, non-tender, full range of motion Respiratory Exam: normal breath sounds, lungs clear Cardiovascular Exam: regular rate/rhythm, normal heart sounds Gastrointestinal/Abdomen Exam: soft, normal bowel sounds, tenderness, guarding Back Exam: normal inspection, normal range of motion Extremity Exam: normal inspection, normal range of motion Neurologic Exam: alert, oriented x 3, cooperative Skin Exam: normal color SpO2 Interpretation: normal SpO2: 100 O2 Delivery: Room Air - Course EKG Interpreted by Me: RATE (72), Sinus Rhythm, Left Outing Deviation, NORMAL IN TERVALS, Left Bundle Branch Block, Non-specific ST Changes Ordered Tests: Active Orders 24 hr Category Date Time Status EKG-ER Only STAT Care 07/08/21 21:05 Active IV Insertion STAT Care 07/08/21 21:05 Active NPO (ED) STAT Care 07/08/21 21:05 Active ABDOMEN AND PELVIS W CONTRAST [CT] Stat Exams 07/08/21 21:09 Taken CBC W DIFF Stat Lab 07/08/21 21:30 Completed CMP Stat Lab 07/08/21 21:30 Completed LIPASE Stat Lab 07/08/21 21:30 Completed TROPONIN Q3H Lab 07/08/21 21:30 Completed TROPONIN Q3H Lab 07/09/21 00:15 Ordered TROPONIN Q3H Lab 07/09/21 03:15 Ordered TROPONIN Q3H Lab 07/09/21 06:15 Ordered TROPONIN Q3H Lab 07/09/21 09:15 Ordered UA W/RFX UR CULTURE Stat Lab 07/08/21 21:06 Ordered Medication Summary Discontinued Medications Generic Name Dose Route Start Last Admin Trade Name Freq PRN Reason Stop Dose Admin Sodium Chloride 1,000 mls @ 999 mls/hr 07/08/21 21:05 07/08/21 22:21 Sodium Chloride 0.9% 1000 Ml IV 07/08/21 22:05 Infused .Q1H1M STA Infusion Sodium Chloride Confirm 07/08/21 21:18 Sodium Chloride 0.9% 1000 Ml Administered 07/08/21 21:19 Dose 1,000 mls @ ud .ROUTE .STK-MED ONE Magnesium Hydroxide 45 ml 07/08/21 21:05 07/08/21 21:28 Mag Hydrx/Alum Hyd/Simeth/Lido 45 Ml Bottle PO 07/08/21 21:06 Not Given STAT ONE Morphine Sulfate 4 mg 07/08/21 21:05 07/08/21 21:09 Morphine Sulfate 4 Mg/Ml Injection IV 07/08/21 21:06 4 mg STAT ONE Administration Morphine Sulfate Confirm 07/08/21 21:08 Morphine Sulfate 4 Mg/Ml Injection Administered 07/08/21 21:09 Dose 4 mg .ROUTE .STK-MED ONE Ondansetron HCl 4 mg 07/08/21 21:05 07/08/21 21:09 Ondansetron Hcl 4 Mg/2 Ml Vial IV 07/08/21 21:06 4 mg STAT ONE Administration Ondansetron HCl Confirm 07/08/21 21:08 Ondansetron Hcl 4 Mg/2 Ml Vial Administered 07/08/21 21:09 Dose 4 mg .ROUTE .STK-MED ONE Pantoprazole Sodium 40 mg 07/08/21 21:05 07/08/21 21:19 Pantoprazole 40 Mg Vial IV 07/08/21 21:06 40 mg STAT ONE Administration Pantoprazole Sodium Confirm 07/08/21 21:18 Pantoprazole 40 Mg Vial Administered 07/08/21 21:19 Dose 40 mg IV .[facility] ONE Lab/Rad Data: Laboratory Result Diagrams 07/08/21 21:30 07/08/21 21:30 Laboratory Results 07/08/21 07/08/21 07/08/21 Range/Units 21:30 21:30 21:30 WBC 12.1 H (4.0-10.5) K/mm3 RBC 4.78 (4.1-5.4) M/mm3 Hgb 13.9 (12.0-16.0) gm/dl Hct 41.6 (35-47) % MCV 87.0 (78-100) fl MCH 29.1 (26-32) pg MCHC 33.4 (32-36) g/dl RDW 13.7 (11.5-14.0) % Plt Count 344 (150-450) K/mm3 MPV 11.2 H (7.5-11.0) fl Gran % 77.1 H (36.0-66.0) % Eos # (Auto) 0.16 (0-0.5) Absolute Lymphs (auto) 1.91 (1.0-4.6) Absolute Monos (auto) 0.68 (0.0-1.3) Lymphocytes % 15.8 L (24.0-44.0) % Monocytes % 5.6 (0.0-12.0) % Eosinophils % 1.3 (0.00-5.0) % Basophils % 0.2 (0.0-0.4) % Absolute Granulocytes 9.33 H (1.4-6.9) Basophils # 0.03 (0-0.4) Sodium 139 (137-145) mmol/L Potassium 3.9 (3.5-5.1) mmol/L Chloride 103 (98-107) mmol/L Carbon Dioxide 22 (22-30) mmol/L Anion Gap 18.7 H (5-15) MEQ/L BUN 18 H (7-17) mg/dL Creatinine 0.83 (0.52-1.04) mg/dL Estimated GFR > 60.0 ML/MIN Glucose 143 H (74-106) mg/dL Calcium 9.6 (8.4-10.2) mg/dL Total Bilirubin 0.80 (0.2-1.3) mg/dL AST 166 H (14-36) U/L ALT 81 H (0-35) U/L Alkaline Phosphatase 205 H (38-126) U/L Troponin I < 0.012 (0.000-0.034) ng/mL Serum Total Protein 7.3 (6.3-8.2) g/dL Albumin 4.3 (3.5-5.0) g/dL Lipase 146 (23-300) U/L - Progress Progress: improved, re-examined Progress Note: 07/08/21 23:53 She is given symptomatic treatment along with fluids, Protonix and GI cocktail, on reevaluation her pain is improved. EKG no ST elevation and negative troponins. Has normal white count, mildly elevated transaminases, normal total bilirubin and CT abdomen pelvis with contrast did not show any acute findings becerra ggesting acute pancreatitis, cholecystitis etc. Patient does have history of hiatal hernia and her pain seems to be acid reflux related, will start her on Protonix and Carafate, outpatient follow-up recommended. Discussed signs symptoms of worsening and return to ER which she seems understanding. Counseled pt/family regarding: lab results, diagnosis, need for follow-up, rad results - Departure Departure Disposition: Home Clinical Impression: Epigastric pain Condition: Stable Critical Care Time: No Referrals: REBECA WILLINGHAM [Primary Care Provider] - Follow up/PCP as directed (1-2 days for reevaluation) Instructions: Acute Abdomen (Belly Pain), Adult (DC) Additional Instructions: Do not take ibuprofen, take Tylenol. Follow-up with primary care for reevaluation. Return to ER for worsening pain or if develop intractable nausea vomiting/fever chills etc. Prescriptions: Sucralfate 1 gm [Carafate 1 GM] 1 g PO ACHS #20 tablet PANTOPRAZOLE 40 mg Tablet [Protonix 40MG Tablet] 40 mg PO QAM #30 tab
[2021-07-08] MEDS ORDERED: Sodium Chloride 0.9% 1000 ML 1,000 ML ONE (21:18)
[2021-07-08 21:45] LABS: Absolute Neutrophil Ct (ANC) 9.33 (1.4-6.9); Basophil (Absolute #) 0.03 (0-0.4); Eosinophil % 1.3 % (0.00-5.0); Eosinophil (Absolute #) 0.16 (0-0.5); Hematocrit 41.6 % (35-47); Hemoglobin 13.9 gm/dl (12.0-16.0); Lymphocyte (Absolute #) 1.91 (1.0-4.6); Lymphocytes % 15.8 % (24.0-44.0); Mean Corpuscular Hemoglobin 29.1 pg (26-32); Mean Corpuscular Hgb Concent. 33.4 g/dl (32-36); Mean Platelet Volume 11.2 fl (7.5-11.0); Monocyte (Absolute #) 0.68 (0.0-1.3); Monocytes % 5.6 % (0.0-12.0); Neutrophil % 77.1 % (36.0-66.0); Platelet Count 344 K/mm3 (150-450); Red Blood Count 4.78 M/mm3 (4.1-5.4); Red Cell Distribution Width 13.7 % (11.5-14.0); White Blood Count 12.1 K/mm3 (4.0-10.5)
[2021-07-08 21:57] LABS: ALBUMIN 4.3 g/dL (3.5-5.0); ALKALINE PHOSPHATASE 205 U/L (38-126); ANION GAP 18.7 MEQ/L (5-15); BLOOD UREA NITROGEN 18 mg/dL (7-17); CHLORIDE 103 mmol/L (98-107); Calcium 9.6 mg/dL (8.4-10.2); Carbon Dioxide 22 mmol/L (22-30); Creatinine 1 0.83 mg/dL (0.52-1.04); EST GLOMERULAR FILTRATION RATE > 60.0 ML/MIN; Glucose 143 mg/dL (74-106); LIPASE 146 U/L (23-300); Potassium 3.9 mmol/L (3.5-5.1); SGOT/AST 166 U/L (14-36); SGPT/ALT 81 U/L (0-35); SODIUM 139 mmol/L (137-145); Total Protein 7.3 g/dL (6.3-8.2)
[2021-07-09 00:52] VITALS: BP 103/61; PULSE 78; O2SAT 99
--- NOTE | 2021-07-09 08:51 | XRAY ---
Indication: Pain. Multiple contiguous axial images obtained through the abdomen and pelvis using 80 cc Isovue 370 contrast. Comparison: None Lung bases demonstrates mild dependent atelectasis. Heart is not enlarged. Small hiatal hernia. Noncontrasted stomach and bowel loops appear nonobstructed. Mild scattered colonic diverticulosis without diverticulitis. No free fluid/air. Remaining liver, gallbladder, pancreas, spleen, adrenal glands, kidneys, ureters, bladder, and uterus appear unremarkable. Mild scattered aortoiliac calcifications. No AAA or pathologic retroperitoneal lymphadenopathy. Osseous structures intact with minimal/mild degenerative changes throughout the thoracolumbar spine. Impression: 1. Colonic diverticulosis, small hiatal hernia, and degenerative spondylosis. 2. Remaining CT abdomen/pelvis with contrast exam is negative. Comment: Preliminary interpretation made by [facility]. No critical discrepancy.
== END 2021-07-09 00:54 | disposition home or self-care (01) ==
LOC: ED 20:22
DX: R10.13 Epigastric pain (principal); R11.0 Nausea; I10 Essential (primary) hypertension; Z79.899 Other long term (current) drug therapy
CPT/HCPCS: 36000; 36415; 74177; 80053; 83690; 84484; 85025; 93005; 96360; 96374; 96375; 99284; J2270; J2405